=== PATIENT | female | born 1930 | race Caucasian/White ===

== ENCOUNTER 2018-07-22 14:32 | Outpatient (CLI) | payer OTHER | END 2018-07-22 14:39 | disposition home or self-care (01) | LOC: RAD 14:32 | DX: G56.03 Carpal tunnel syndrome, bilateral upper limbs (principal); M19.049 Primary osteoarthritis, unspecified hand ==

== ENCOUNTER 2018-08-17 13:24 | Outpatient (CLI) | payer OTHER | END 2018-08-17 13:36 | disposition home or self-care (01) | LOC: RAD 13:24 | DX: M75.82 Other shoulder lesions, left shoulder (principal) ==